=== PATIENT | female | born 1990 | race Hispanic/Latino ===

== ENCOUNTER 2021-02-18 11:02 | Emergency (ER) | payer BC ==
[~2021-02-18] VITALS: Ht 157.5 cm; Wt 58.5 kg
[2021-02-18] MEDS ORDERED: LIDOCAINE HCL 400MG/20ML VIAL ONE (12:27)
[2021-02-18] MEDS ORDERED: IBUP-2070 PO (12:51)
[2021-02-18] MEDS ORDERED: SULF1TAB42 PO (12:51)
[2021-02-18] MEDS ORDERED: SULFAMETHOX-TMP DS 800/160 TAB PO SCH (13:00)
[2021-02-18 13:32] VITALS: BP 118/56
== END 2021-02-18 13:39 | disposition home or self-care (01) ==
LOC: EDH 11:02
DX: L02.214 Cutaneous abscess of groin (principal)
CPT/HCPCS: 10060; 99283; J3490

== ENCOUNTER 2021-10-07 20:10 | Emergency (ER) | payer BC ==
[~2021-10-07] VITALS: Ht 157.5 cm; Wt 59.0 kg
[~2021-10-07 20:10] MED LIST: IBUP-2070 PO; SULF1TAB42 PO
[2021-10-07] MEDS ORDERED: SOLU-MEDROL 125MG VIAL IVP ONE (20:30)
[2021-10-07] MEDS ORDERED: ALBUTEROL INHALER 90MCG/INH IH ONE (20:30)
[2021-10-07] MEDS ORDERED: 0.9%NACL 1000ML 1,000 ML IV ONE (20:30)
[2021-10-07 21:30] VITALS: BP 115/73
[2021-10-07] MEDS ORDERED: ALBU8.5H8 IH (21:32)
[2021-10-07] MEDS ORDERED: PRED20TA3 PO (21:32)
[2021-10-07] MEDS ORDERED: ONDA-104 PO (21:34)
== END 2021-10-07 22:06 | disposition home or self-care (01) ==
LOC: EDH 20:10
DX: U07.1 COVID-19 (principal)
CPT/HCPCS: 99284; 96374; 87635; 96361; 87804 ×2; C9803; J7030; J2930